=== PATIENT | male | born 1940 | race Two or more races ===

== ENCOUNTER 2025-05-18 19:34 | Emergency (ER) | payer MEDICARE, BC ==
[~2025-05-18] VITALS: Ht 180.3 cm; Wt 71.7 kg
--- NOTE | 2025-05-18 20:23 | ED.PDOC ---
Musculoskeletal HPI Comments HPI: 85-year-old male who came to the ER for extremity swelling. Patient is a poor informant. States for the past 2 weeks she has been experiencing bilateral lower legs swelling, upper extremity swelling, left >right. He denies any pain. Denies any shortness of breath. Patient unsure of his past medical history Past Medical History: Denies Surgical History: Pacemaker, Open Heart Surgery Family History: Denies Personal and Social History: Lives with his JOSIAH: EXT SWELLING HPI: Poor Historian. REVIEW OF SYSTEMS: CONSTITUTIONAL: Denies acute: fever, diaphoresis, chills, generalized weakness. HEAD: Denies acute: headache, photophobia Eyes: Denies acute: Double vision, vision loss, eye pain, eye discharge. EARS: Denies acute: tinnitus, hearing loss, ear discharge, ear pain, THROAT: Denies acute: sore throat, swelling, difficulty swallowing , pain with swallowing, change in voice. NECK: Denies acute: neck pain, neck swelling, stiff neck. HEART: Denies acute : chest pain, palpitations, LUNGS: Denies acute: SOB, wheezing, cough, hemoptysis ABDOMEN: Denies acute: abdominal pain, Nausea, Vomiting, diarrhea, melena , hematemesis, hematochezia SKIN: Denies acute: rash, redness, lesions, itchiness. EXTREMITIES: Denies acute: calf pain, numbness, tingling, weakness, denies pain in extremity. Denies acute: Low back pain. Neuro: Denies acute: focal neurological deficit, motor or sensory focal neurological deficit, tremors, seizure like activity, confusion, dizziness, change in mental status, loss of bowel or bladder function, cauda equina like symptoms. : Denies acute: dysuria, hematuria, flank pain, increase in urinary frequency. PSYCH: Denies acute: hallucination, suicidal ideation, homicidal ideation. PHYSICAL EXAM: General: -----no---acute distress, awake and alert. Head: normocephalic, atraumatic. No raccoon's eyes, no anthony sign. Neck: supple, trachea is midline, no swelling. Throat: Normal phonation. Eyes:, no erythema, no purulent discharge, no proptosis, no icterus. Heart: regular rate, regular rhythm, no significant murmur appreciated. Lungs: no apparent respiratory distress, Able to speak in full sentences. No wheezing, no rhonchi, no crackles. No stridors Clear to auscultation bilaterally. Abdomen: non tender to palpation, non distended, soft, no guarding, no rebound, + bowel sounds. Neuro: Awake, Alert, oriented to name, self, situation, follows commands GCS=15. Speech is normal. Skin: no petechia, no purpura, no cyanosis, slightly-pale, not jaundice. Lower extremities: --4/4 b/l- Pitting edema no deformity, no focal swelling, no calf TTP. Makes eye contact. moves all four extremities. Face: no apparent facial droop. Ambulating in the ED independently. ED COURSE: DISCLAIMER: This medical document was created using an electronic medical record system with voice recognition software and computerized dictation system. Although this document has been carefully reviewed, there might still be some phonetic and typographical errors. Occasional wrong-word or "sound-alike" substitutions may have occurred due to the inherent limitations of voice recognition software. These areas are purely typographical due to imperfections of the software programs and do not reflect any compromise in the patient's medical care. Please read the chart carefully and recognize, using context, where these substitutions have occurred. Chief Complaint: Extremity Swelling Time Seen by MD: 20:20 Reviewed Notes: Nurses Notes, Allergies Allergies: Coded Allergies: NO KNOWN ALLERGIES (Unverified , 05/19/25) Information Source: Patient Mode of Arrival: Ambulatory Location: Bilateral Was a procedure done? Was a procedure done?: No EKG EKG : Pulse Rate (adult): 79 Cardiac Rhythm: Afib Differential Diagnosis EXT Differential Diagnosis: Cellulitis, CHF, Deep Vein Thrombosis, Other (Leg swellingDdx include but not limited to DVT, ischemic limb, pitting edema, volume overload, CHF, cellulitis, hematoma, compartment syndrome, dependent edema, venous stasis. Necrotizing fasciitis, abscess, infestation.) X-Ray, Labs, Meds, VS Vital Signs Date Time Temp Pulse Resp B/P (MAP) Pulse Ox O2 Delivery O2 Flow Rate FiO2 05/18/25 21:56 97.6 89 16 114/49 (70) 100 97.6 05/18/25 20:23 79 05/18/25 19:59 79 05/18/25 19:45 97.9 83 18 104/62 96 97.9 Lab Test 05/18/25 20:20 Range/Units White Blood Count 5.6 4.4-10.8 10^3/uL Red Blood Count 3.82 L 4.5-5.90 10^6/uL Hemoglobin 10.1 L 13.5-17.5 g/dL Hematocrit 31.1 L 41.0-53.0 % Mean Corpuscular Volume 81.4 80.0-100.0 fL Mean Corpuscular Hemoglobin 26.4 L 28.0-32.0 pg Mean Corpuscular Hemoglobin Concent 32.5 32.0-36.0 g/dL Red Cell Distribution Width 17.0 H 11.8-14.3 % Platelet Count 377 140-450 10^3/uL Mean Platelet Volume 7.2 6.9-10.8 fL Neutrophils (%) (Auto) 80.5 H 37.0-80.0 % Lymphocytes (%) (Auto) 10.5 10.0-50.0 % Monocytes (%) (Auto) 6.5 0.0-12.0 % Eosinophils (%) (Auto) 1.8 0.0-7.0 % Basophils (%) (Auto) 0.7 0.0-2.0 % Neutrophils # (Auto) 4.5 1.6-8.6 10 ^3/uL Lymphocytes # (Auto) 0.6 0.4-5.4 10 ^3/uL Monocytes # (Auto) 0.4 0-1.3 10 ^3/uL Eosinophils # (Auto) 0.1 0-0.8 10 ^3/uL Basophils # (Auto) 0 0-0.2 10 ^3/uL Nucleated Red Blood Cells 0.1 % Sodium Level 144 136-145 mmol/L Potassium Level 3.5 3.5-5.1 mmol/L Chloride Level 107 98-107 mmol/L Carbon Dioxide Level 29 20-31 mmol/L Anion Gap 8 5-15 Blood Urea Nitrogen 14 9-23 mg/dL Creatinine 1.04 0.700-1.30 mg/dL Glomerular Filtration Rate Calc 71 >90 mL/min BUN/Creatinine Ratio 13.5 10.0-20.0 Serum Glucose 92 74-106 mg/dL Lactic Acid Level 0.8 0.4-2.0 mmol/L Calcium Level 8.0 L 8.7-10.4 mg/dL Total Bilirubin 0.7 0.2-1.0 mg/dL Aspartate Amino Transferase (AST) 41 H 13-40 U/L Alanine Aminotransferase (ALT) 32 7-40 U/L Alkaline Phosphatase 137 H 46-116 U/L Troponin I High Sensitivity 6 </=54 ng/L C-Reactive Protein High Sensitivity 5.69 H <1.0 mg/dL B-Type Natriuretic Peptide 174.09 0-100 pg/mL Total Protein 5.7 5.7-8.2 g/dL Albumin 3.2 3.2-4.8 g/dL [place] [address] Ph: [phone] DIAGNOSTIC IMAGING Diagnostic Imaging Report : [id number] Signed PATIENT: RUEL RAHMAN ACCT: [id number] UNIT: [id number] : 1940 LOC: ER ROOM / BED: / AGE / SEX: 85 / M ADM STATUS: REG ER SERVICE 18 ORDERING PHYSICIAN: DEZ SOLANO DO PROCEDURE(s): CXRP - CHEST PORTABLE REASON: volume overload ORDER NUMBER(s): [id number], ACCESSION NUMBER(s): [id number] EXAM: XY CHEST PORTABLE HISTORY: volume overload TECHNIQUE: 1 view of the chest COMPARISON: None FINDINGS/IMPRESSION: LUNGS: Small left-sided pleural effusion with atelectasis in the left lung base. MEDIASTINUM: Normal cardiac size with postoperative changes compatible with prior coronary artery bypass graft surgery. Left anterior chest single lead ventricular cardiac device BONES: No acute osseous abnormality. OTHER: None. ATED BY: BOOKER ANTOINE MD DICTATED DATE/TIME: 05/18/252049 SIGNED BY: BOOKER ANTOINE MD SIGNED DATE/TIME: 05/18/252049 CC: [place] [address] Ph: [phone] DIAGNOSTIC IMAGING Diagnostic Imaging Report : [id number] Signed PATIENT: RUEL RAHMAN ACCT: [id number] UNIT: [id number] : 1940 LOC: ER ROOM / BED: / AGE / SEX: 85 / M ADM STATUS: REG ER SERVICE ORDERING PHYSICIAN: DEZ SOLANO DO PROCEDURE(s): BLDVT - BiLat Lower DVT REASON: swelling ORDER NUMBER(s): [id number], ACCESSION NUMBER(s): [id number] Bilateral lower extremity venous duplex Clinical History: swelling Comparison: None Technique: Duplex Doppler evaluation of the deep venous systems of both lower extremities from the common femoral veins to the popliteal veins including color Doppler and spectral/pulsed waveform analysis was performed. Findings: RIGHT SIDE: The common femoral vein demonstrates appropriate compressibility and waveform variability. There is compressibility/patency of the great saphenous vein at the proximal thigh. The femoral vein demonstrates appropriate compressibility and waveform variability. The deep femoral vein demonstrates appropriate compressibility and waveform variability. The popliteal vein demonstrates appropriate compressibility and waveform variabi lity. There is normal compressibility at the tibioperoneal trunk. LEFT SIDE: The common femoral vein demonstrates appropriate compressibility and waveform variability. There is compressibility/patency of the great saphenous vein at the proximal thigh. The femoral vein demonstrates appropriate compressibility and waveform variability. The deep femoral vein demonstrates appropriate compressibility and waveform variability. The popliteal vein demonstrates appropriate compressibility and waveform variab ility. There is normal compressibility at the tibioperoneal trunk. Impression: No right or left femoropopliteal venous thrombosis. ATED BY: MARY VAIL MD DICTATED DATE/TIME: 05/19/25156 SIGNED BY: MARY VAIL MD SIGNED DATE/TIME: 05/19/25156 CC: [place] [address] Ph: [phone] DIAGNOSTIC IMAGING Diagnostic Imaging Report : [id number] Signed PATIENT: RUEL RAHMAN ACCT: [id number] UNIT: [id number] : 1940 LOC: ER ROOM / BED: / AGE / SEX: 85 / M ADM STATUS: REG ER SERVICE [id number] ORDERING PHYSICIAN: DEZ SOLANO DO PROCEDURE(s): LUDVT - LT Upper DVT REASON: swelling ORDER NUMBER(s): [id number], ACCESSION NUMBER(s): [id number] LEFT Upper Extremity Venous Duplex Clinical History: swelling Comparison: None Technique: Duplex Doppler evaluation of the venous system of the LEFT lower neck and upper extremity including color Doppler and spectral/pulsed waveform analysis was performed. Findings: The internal jugular vein demonstrates appropriate compressibility and waveform variability. The subclavian vein is patent on color Doppler evaluation without intraluminal thrombus and demonstrates waveform variability. The visualized portion of the brachiocephalic vein is patent on color Doppler evaluation without intraluminal thrombus and demonstrates waveform variability. The axillary vein demonstrates appropriate compressibility and waveform variability. The brachial veins demonstrate appropriate compressibility and patency on Doppler evaluation. The basilic vein demonstrates appropriate compressibility and patency on Doppler evaluation. The cephalic vein demonstrates appropriate compressibility and patency on Doppler evaluation. Impression: No venous thrombus identified in the LEFT upper extremity vessels evaluated above. ATED BY: MARY VAIL MD DICTATED DATE/TIME: 05/19/25156 SIGNED BY: MARY VAIL MD SIGNED DATE/TIME: 05/19/25156 CC: Time of 1ST Reevaluation: 20:19 Reevaluation 1ST: Unchanged Time of 2ND Reevaluation: 00:43 (The case was discussed with the admitting team (HPI, physical exam, labs and diagnostic tests that were available at the time of disposition, ED course, treatment plan) on the phone. They agreed to evaluate the patient and make appropriate disposition. We agreed to order DVT rule out ultrasound --- Adolph.HE LOOKED UP THE RECORD AND STATED THAT THE PATIENT HAS HISTORY OF RHEUMATOID ARTHRITIS, ANGINA, COPD, POLYNEUROPATHY, HYPERTENSION, HYPERLIPIDEMIA, CARDIOMYOPATHY, ATRIAL FIBRILLATION , HEART FAILURE, PATIENT IS ON ELIQUIS. PATIENT IS ON AMIODARONE AND METOPROLOL.) Reevaluation 2ND: Unchanged Patient Education/Counseling: Diagnosis, Treatment Family Education/Counseling: No Family Present Comments MDM: patient presented with the above HPI.--volume overload and leg swelling----workup was initiated. patient was found with the above mentioned diagnosis. the following medications were ordered: please refer to order lists of meds and tests obtained by myself Dr. Solano. Patient ED course and VS have been stabilized. Patient has been reassessed in the ED and remained in a stable condition. Pertinent incidental findings were discussed with the patient and/or family. Patient/family voices understanding and is agreeable with plan. Patient has been observed in the ED adequate length of time to insure improvement/stability. Escalation of care considered: Consideration of escalation to observation or admission Case was discussed with the hospitalist Dr. Tirado for admission to the medicine team for further evaluation and treatment of their presentation. The hospitalist will make the final disposition of the patient. He will most likely discharge the patient home and arrange for outpatient workup. Please see his consultation and follow up dispositioned orders. All the reports of any imaging studies that were ordered by myself were reviewed by myself. Sepsis Sepsis Reasesment Focused Exam Orders: Laboratory Tests 05/18/25 20:20: Lactic Acid Level 0.8 Departure 1 Departure Time of Disposition: 21:53 Impression: Primary Impression: 4+ pitting edema Additional Impressions: Volume overload Anemia Elevated C-reactive protein (CRP) Disposition: ADMITTED INPATIENT Admit to: Tele Condition: Guarded Discharged With: Self Critical Care Note Critical Care Time?: No I personally scribed for DEZ SOLANO DO ([email or web address]) on 05/18/25 at 20:23. Electronically submitted by Ivan Painting (Pumant). I personally scribed for DEZ SOLANO DO ([email or web address]) on 05/18/25 at 21:05. Electronically submitted by Ivan Painting ([email or web address]). I personally scribed for DEZ SOLANO DO ([email or web address]) on 05/19/25 at 02:05. Electronically submitted by Ivan [employer] ([email or web address]). I personally scribed for DEZ SOLANO DO ([email or web address]) on 05/19/25 at 02:06. Electronically submitted by Ivan [employer] (RCARRILLO). DEZ SOLANO DO May 18, 2025 20:23
[2025-05-18 20:36] LABS: Mean Corpuscular Volume 81.4 fL (80.0-100.0)
[2025-05-18 20:39] LABS: Hematocrit 31.1 % (41.0-53.0); Hemoglobin 10.1 g/dL (13.5-17.5); Mean Corpuscular Hemoglobin 26.4 pg (28.0-32.0); Nucleated Red Blood Cells % 0.1 %
[2025-05-18 20:51] LABS: Alanine Aminotransferase 32 U/L (7-40); Albumin 3.2 g/dL (3.2-4.8); Anion Gap 8 (5-15); BUN/Creatinine Ratio 13.5 (10.0-20.0); Blood Urea Nitrogen 14 mg/dL (9-23); Carbon Dioxide 29 mmol/L (20-31); Glucose 92 mg/dL (74-106); Sodium 144 mmol/L (136-145)
[2025-05-18 20:52] LABS: Bilirubin, Total 0.7 mg/dL (0.2-1.0)
--- NOTE | 2025-05-18 20:53 | DVH ---
EXAM: XY CHEST PORTABLE HISTORY: volume overload TECHNIQUE: 1 view of the chest COMPARISON: None FINDINGS/IMPRESSION: LUNGS: Small left-sided pleural effusion with atelectasis in the left lung base. MEDIASTINUM: Normal cardiac size with postoperative changes compatible with prior coronary artery bypass graft surgery. Left anterior chest single lead ventricular cardiac device BONES: No acute osseous abnormality. OTHER: None.
[2025-05-18 21:08] LABS: Alkaline Phosphatase 137 U/L (46-116); Calcium 8.0 mg/dL (8.7-10.4); Chloride 107 mmol/L (98-107); Potassium 3.5 mmol/L (3.5-5.1); Total Protein 5.7 g/dL (5.7-8.2)
--- NOTE | 2025-05-19 01:59 | DVH ---
Bilateral lower extremity venous duplex Clinical History: swelling Comparison: None Technique: Duplex Doppler evaluation of the deep venous systems of both lower extremities from the common femoral veins to the popliteal veins including color Doppler and spectral/pulsed waveform analysis was performed. Findings: RIGHT SIDE: The common femoral vein demonstrates appropriate compressibility and waveform variability. There is compressibility/patency of the great saphenous vein at the proximal thigh. The femoral vein demonstrates appropriate compressibility and waveform variability. The deep femoral vein demonstrates appropriate compressibility and waveform variability. The popliteal vein demonstrates appropriate compressibility and waveform variability. There is normal compressibility at the tibioperoneal trunk. LEFT SIDE: The common femoral vein demonstrates appropriate compressibility and waveform variability. There is compressibility/patency of the great saphenous vein at the proximal thigh. The femoral vein demonstrates appropriate compressibility and waveform variability. The deep femoral vein demonstrates appropriate compressibility and waveform variability. The popliteal vein demonstrates appropriate compressibility and waveform variability. There is normal compressibility at the tibioperoneal trunk. Impression: No right or left femoropopliteal venous thrombosis.
--- NOTE | 2025-05-19 02:00 | DVH ---
LEFT Upper Extremity Venous Duplex Clinical History: swelling Comparison: None Technique: Duplex Doppler evaluation of the venous system of the LEFT lower neck and upper extremity including color Doppler and spectral/pulsed waveform analysis was performed. Findings: The internal jugular vein demonstrates appropriate compressibility and waveform variability. The subclavian vein is patent on color Doppler evaluation without intraluminal thrombus and demonstrates waveform variability. The visualized portion of the brachiocephalic vein is patent on color Doppler evaluation without intraluminal thrombus and demonstrates waveform variability. The axillary vein demonstrates appropriate compressibility and waveform variability. The brachial veins demonstrate appropriate compressibility and patency on Doppler evaluation. The basilic vein demonstrates appropriate compressibility and patency on Doppler evaluation. The cephalic vein demonstrates appropriate compressibility and patency on Doppler evaluation. Impression: No venous thrombus identified in the LEFT upper extremity vessels evaluated above.
[2025-05-19] MEDS: FUROSEMIDE 100 MG/10ML VIAL IV ONE (05:31)
[2025-05-19 06:00] VITALS: PULSE 81; RESP 20; O2SAT 100
[2025-05-19 09:39] VITALS: PULSE 89; RESP 18; O2SAT 100
[2025-05-19 10:52] LABS: Urine Protein, UAD Negative (Negative)
[2025-05-19 12:00] VITALS: TEMP 97.6
[2025-05-19 14:00] VITALS: BP 113/56; PULSE 98; RESP 18; O2SAT 100
--- NOTE | 2025-05-20 09:02 | DVHDS2 ---
New Physician D'charge PN Admitting Diagnosis Admitting Diagnosis swelling lower ext Discharge Diagnosis chronic venous stasis Operations or Procedures none Reason(s) For Hospitalization Surgery Hospital Course 85 M who comes to the ER for lower extremity swelling. He is a poor historian. His lab work up here revealed essentially a nml CBC and nml chem panel with preserved renal function. HIs CXR showed no acute findings. He had a lower extremity venous doppler done which revealed no DVT and upper extremity venous doppler on the Left side also revealed no upper extremity DVT. Hemodynamically he has been stable with nml blood pressures and he is on room air with saturations >90%. The patient apparently lives at home however is weak and needs assistance. This was discussed with his daughter who states patient is pending placement to an assisted living facility however until that happens he cannot go home as he is unable to care for himself completely. Given his weakness he will be discharged to SNF for now for PT. Family is in agreement with plan and patient will be dc to SNF. Treatment Plan Discharge Condition of Discharge Good Disposition Detention Facility Discharge Instructions Diet: Cardiac 2g Na,low cholest Activity: No Restrictions, As Tolerated Medications: see med sheet Follow Up Care Discharge Statement: "Patient was advised to return to the ER or call 911 if any headaches, dizziness, shortness of breath, chest pain, abdominal pain, bleeding, fevers, or worsening of medical condition. Patient was counseled about treatment plan, medications, possible side effects, patientverbalized understanding. All questions were answered to the best of my ability. This discharge took greater then 30 minutes in planning, reviewing documentation, counseling the patient, and discussing with other team members." NOEL CAMPO MD May 20, 2025 09:02
== END 2025-05-19 11:32 | disposition home or self-care (01) ==
LOC: ER 19:34
DX: R60.9 Edema, unspecified (principal); D64.9 Anemia, unspecified; R79.82 Elevated C-reactive protein (CRP); Z79.899 Other long term (current) drug therapy
CPT/HCPCS: 36415; 71045; 80053; 81001; 83605; 83880; 84484; 85025; 86141; 93970; 93971; 96374; 99285; J1938